=== PATIENT | male | born 1995 | race Caucasian/White ===

== ENCOUNTER 2020-12-11 06:05 | Emergency (ER) | payer OTHER ==
[~2020-12-11] VITALS: Ht 175.3 cm; Wt 63.5 kg
[2020-12-11 06:14] VITALS: BP 136/83
--- NOTE | 2020-12-11 06:14 | NUR ---
TO BED AMBULATORY
--- NOTE | 2020-12-11 06:16 | NUR ---
Dr. Ta examining patient.
[2020-12-11] MEDS ORDERED: IBUPROFEN 600 MG TAB PO ONE (06:20)
[2020-12-11] MEDS ORDERED: LIDOCAINE 2% 1000 MG/50 ML VIAL INJ ONE (06:20)
--- NOTE | 2020-12-11 06:37 | NUR ---
XRAY AT BEDSIDE.
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
--- NOTE | 2020-12-11 06:46 | NUR ---
Theodora hood in [facility] - 12/11/20 at 0647 by [email or web address] ERMD FOR SUTURE PROCEDURE.
[2020-12-11] MEDS ORDERED: IBUP-2213 PO (06:59)
[2020-12-11] MEDS ORDERED: MUPI2CRE22 TP (06:59)
[2020-12-11 07:02] VITALS: BP 136/83
== END 2020-12-11 07:02 | disposition home or self-care (01) ==
LOC: MED 06:05
DX: S61.012A Laceration without foreign body of left thumb without damage to nail, initial encounter (principal); F17.210 Nicotine dependence, cigarettes, uncomplicated; Z79.1 Long term (current) use of non-steroidal anti-inflammatories (NSAID); Z79.2 Long term (current) use of antibiotics; W45.8XXA Other foreign body or object entering through skin, initial encounter; Y93.89 Activity, other specified; Y92.89 Other specified places as the place of occurrence of the external cause; Y99.0 Civilian activity done for income or pay
CPT/HCPCS: 29125; 73140; 90471; 90715; 99283; Q0092; J2001